=== PATIENT | female | born 1965 | race Caucasian/White ===

== ENCOUNTER 2018-12-24 17:31 | Inpatient (IN) | payer OTHER ==
[~2018-12-24] VITALS: Ht 7368 cm; Wt 2.4 kg
--- NOTE | ~2018-12-24 | WRIGHTHP ---
[place], [place] PATIENT HISTORY AND PHYSICAL EXAM NAME: [id number] UN[facility] #: [id number] ROOM: 311 DOCTOR: IDA SY MD BIRTHDATE: [birth year] DOS: 12/25/2018 INITIAL PSYCHIATRIC EVALUATION CHIEF COMPLAINT: "I need to talk to Dr. Brannon, Dr. Brannon is my doctor." HISTORY OF PRESENT ILLNESS: This is a 53-year-old white female who was sent here by [facility]. The patient had been there for approximately 10 days being treated for influenza A. While in the course of her treatment, they found her to be acutely manic and psychotic. The patient was very flighty and disjointed. She was crying easily and then would be agitated and aggressive the next moment. The patient was not sleeping well or attending to her ADLs. Because of the severity of her mood lability, it was felt that an inpatient stabilization was warranted. She was ultimately sent to [facility] for further stabilization. PAST MEDICAL HISTORY: Remarkable for diabetes, hypertension, hyperlipidemia, migraine headaches and a lengthy history of bipolar versus schizoaffective disorder. SOCIAL HISTORY: Socially, the patient is a cigarette smoker, the amount and duration is unknown. She does not use alcohol nor does she consume illicit drugs. STRENGTHS: Ambulatory, good verbal skills. WEAKNESSES: Cognitive impairment, long-term psychiatric illness, poor coping skills. MENTAL STATUS: The patient is alert and oriented to person, place, and very much approximate to time. Mood does seem to be very labile. She shifted very rapidly from irritable to anxious and depressed. The patient was flighty and disjointed in her thinking and would be very circumstantial in her presentation. She exhibited a great deal of motor agitation, but was redirectable in that way. The patient's memory does have some gaps, but she was relatively fully intact. DIAGNOSIS: Schizoaffective disorder. PLAN: I have loaded her with Depakote 2000 mg p.o. upon admission to the unit. I will follow up with Depakote 500 mg t.i.d. I have also ordered her Risperdal M-Tab 2 mg b.i.d. with the plan of possibly stabilizing her on Invega Sustenna to improve compliance. Routine screening examinations revealed her to have a low normal vitamin B12 level of 263. I will give her a B12 injection 1000 mcg IM monthly. Engage in individual and arcos milieu activities, returning to the least restrictive environment when stable. [place], [place] PATIENT HISTORY AND PHYSICAL EXAM NAME: YESY KAPOOR UNIT #: [id number] ROOM: [facility] DOCTOR: IDA YS MD BIRTHDATE: [birth year] IDA SY MD CM:HISPHYS:PATIENT HISTORY AND PHYSICAL EXAMINATION 3 0 IDA SY MD 12/25/18 0940 interface
--- NOTE | ~2018-12-24 | PR ---
[place], [place] PROGRESS NOTE NAME: YESY KAPOOR UNIT #: [id number] ROOM: 311 DOCTOR: IDA SY MD BIRTHDATE: [birth year] DOS: 12/26/2018 CHIEF COMPLAINT: "I feel sick in the stomach." SUMMARY OF THE VISIT: The patient was interviewed in the group therapy room. She had just finished eating breakfast and she was accompanied by the nursing students. She sat down and engaged in much more normal conversation. She was more goal directed in her thinking and less flighty and disjointed. She complained of feeling nauseated, but otherwise stated she slept well and had a good breakfast. MENTAL STATUS: She is alert and oriented to person, place, approximate to time. Mood does seem to be trending towards euthymia. Affect is more appropriate. There is no henny or hypomania noted this morning and no psychotic symptoms. Short term, intermediate and long-term memories for the most part are intact. PLAN: I will maintain her current psychotropic regimen, engage in individual and arcos milieu activity, returning to the least restrictive environment when psychiatrically stable. IDA SY MD CM:PNTRANS [phone] IDA SY MD 12/26/18 1535 interface
[2018-12-24] MEDS ORDERED: K-LOR 20MEQ20 ME1 PO (17:54)
[2018-12-24] MEDS ORDERED: ZOCOR20 MG PO (17:54)
[2018-12-24] MEDS ORDERED: PEPCID20 MG PO (17:54)
[2018-12-24] MEDS ORDERED: DITROPAN XL10 MG PO (17:55)
[2018-12-24] MEDS ORDERED: VENTOLIN 02.5 MG/3 M INH (17:56)
[2018-12-24] MEDS ORDERED: Diabeta,Micron2.5 MG PO (17:57)
[2018-12-24] MEDS ORDERED: GLUCOPHAGE1000 MG PO (17:57)
[2018-12-24] MEDS ORDERED: VITAMIN D31000 UNI1 PO (17:59)
[2018-12-24] MEDS ORDERED: ACTOS15 M1 PO (18:00)
[2018-12-24] MEDS ORDERED: NESINA PO (18:00)
[2018-12-24] MEDS ORDERED: COREG3.125 MG PO (18:01)
[2018-12-24] MEDS ORDERED: ZESTRIL5 MG PO (18:01)
[2018-12-24] MEDS ORDERED: NICODERM CQ1 EAC2 TD (18:02)
[2018-12-24] MEDS ORDERED: LANTUS SOL100 UNIT/1 SC (18:02)
[2018-12-24] MEDS ORDERED: HUMALOG 751 UNIT/0.0 SC ×2 (18:03)
[2018-12-24] MEDS ORDERED: LASIX20 MG PO (18:04)
[2018-12-24] MEDS ORDERED: GEODON80 MG IM (18:04)
[2018-12-24] MEDS ORDERED: MACROBID100 M1 PO (18:05)
--- NOTE | 2018-12-25 02:08 | NUR ---
YESY KAPOOR a 53 year old F admitted via stretcher from the ADMITTING as a voluntary admission. Arrived on unit at 0208. ALLERGIES: COMPAZINE,BROMPHEN,CEFACLOR,CIPROFLOXACIN,ERYTHOMYCIN,GUAIFENESIN,NIZATIDINE,PE NICILLIN,BACTRIM. Vital signs are: 98.2-85-18 137/68. The [facility] gave verbal consent for the following forms with stated understanding: Authorization For The Release of Medical Information, Clothing List, Consent to Voluntary Admission and Hospitalization, Consent and Release Forms/Receipt of Rights, Acknowledgement of Advance Directive Information, Behavioral Health Consent Form, and Informed Consent of Medications. Admitted under the services of Dr. YOSSI ESTRADAIDA. A search was conducted and hazardous articles were removed. Client was oriented to the unit. MADHU VALDOVINOS
--- NOTE | 2018-12-25 02:10 | NUR ---
DR MOORE UDATED ABOUT ADMISSION. PATIENT TO BE UNDER DR LOTT FOR MEDICAL MANAGEMENT
--- NOTE | 2018-12-25 02:14 | NUR ---
[facility] CALLED AND MESSAGE LEFT WITH UPDATE ABOUT NEW ADMISSION ON UNIT
[2018-12-25 02:23] VITALS: BP 137/68
[2018-12-25 02:32] VITALS: BP 137/68
--- NOTE | 2018-12-25 05:20 | NUR ---
Patient slept approx. 2 hours since admission. Q 15 minute safety checks continued and maintained.
[2018-12-25 06:53] LABS: BASO # 0.1 10*3/uL (0.0-0.1); BASO % 0.4 % (0.0-1.0); EOS # 0.1 10*3/uL (0.0-0.4); EOS % 1.2 % (1.0-4.0); HEMATOCRIT 45.9 % (37.0-47.0); HEMOGLOBIN 14.9 g/dl (12.0-16.0); LYMPH # 3.3 10*3/uL (1.3-4.4); MEAN CELL VOLUME 88.4 fl (81.0-99.0); MEAN CORPUSCULAR HGB 28.7 pg (27.0-31.0); MEAN CORPUSCULAR HGB CONC 32.5 g/dl (33.0-37.0); MONO % 8.4 % (3.0-9.0); NEUT # 6.8 10*3/uL (2.3-7.9); NEUT % 60.6 % (47.0-73.0); PLATELET COUNT AUTOMATED 353 10*3/uL (130-400); RED BLOOD COUNT 5.19 10*6/uL (4.10-5.10); RED CELL DISTRI WIDTH 13.7 % (0-14.5); WHITE BLOOD COUNT 11.3 10*3/uL (4.8-10.8)
[2018-12-25 07:29] LABS: ALBUMIN 3.1 gm/dl (3.1-4.5); BUN 21 mg/dl (7-24); CHLORIDE 105 mmol/L (98-107); CHOLESTEROL 106 mg/dL (<200); CREATININE 0.63 mg/dL (0.55-1.02); POTASSIUM 4.1 mmol/L (3.5-5.1); SGOT/AST 6 IU/L (3-35); SGPT/ALT 30 U/L (12-78); SODIUM 138 mmol/L (136-145); TRIGLYCERIDES 77 mg/dl (<150); VLDL CHOLESTEROL 15 mg/dL (6-40)
[2018-12-25 07:35] LABS: VITAMIN D, 25-HYDROXY 51.7 ng/mL (30-100)
[2018-12-25 07:41] LABS: ALKALINE PHOSPHATASE 65 U/L (45-117); HDL CHOLESTEROL 45 mg/dl (40-60); LDL CHOLESTEROL 46 mg/dL (9-159); TOTAL PROTEIN 6.4 gm/dL (6.4-8.2)
[2018-12-25 08:11] VITALS: BP 132/56
--- NOTE | 2018-12-25 08:15 | NUR ---
Treatment Plan meeting with Dr. Hinton RN, AT and Agency Service Representative. Plan for discharge next week. Will reach out to family today to discuss discharge Planning.
--- NOTE | 2018-12-25 08:17 | NUR ---
PT AWAKE, ALERT, HYPERVERBAL, TEARFUL, DIFFICULT TO REDIRECT. THROWING TISSUES ALL OVER QUIET ROOM. ATE 100% OF BREAKFAST INDEPENDENTLY. AND ON UNIT TO SEE PT AT THIS TIME, UPDATES PROVIDED.
[2018-12-25 09:11] LABS: BILIRUBIN NEGATIVE (NEGATIVE); BLOOD NEGATIVE (NEGATIVE); CLARITY CLEAR (CLEAR); COLOR YELLOW (YELLOW); GLUCOSE 1+ (NEGATIVE); KETONE 1+ (NEGATIVE); LEUKO ESTERASE TRACE (NEGATIVE); NITRITE NEGATIVE (NEGATIVE); PH 5.5 (5.0-9.0); SPECIFIC GRAVITY 1.015 (1.005-1.030); UROBILINOGEN 0.2 E.U./dl (0.2-1.0)
[2018-12-25 09:25] LABS: BACTERIA TRACE
--- NOTE | 2018-12-25 10:24 | NUR ---
CALL RECIEVED FROM PT'S DAUGHTER/BHUMIKA ROMAN, UPDATE PROVIDED. ALL QUESTIONS ANSWERED.
--- NOTE | 2018-12-25 11:41 | NUR ---
AM GROUP PT ATTENDED AND PARTICIPATED IN ALL GROUP ACTIVITIES. PT EXHIBITED NO AGITATION OR AGGRESSION DURING GROUP. PT MOVED QUICKLY FROM ONE TASK TO ANOTHER AND GOT UP OFTEN TO ASK TO USE THE BATHROOM.
--- NOTE | 2018-12-25 12:03 | NUR ---
PRIOR TO LUNCH BSG 66, PT GIVEN ORANGE JUICE AND ATE LUNCH. BSG REASSESSED AT THIS TIME PER NURSING MEASURE WITH RESULT 114.
--- NOTE | 2018-12-25 13:27 | NUR ---
P- MANIC BEHAVIOR, PRESSURED SPEECH WITH FLIGHT OF IDEAS, MOOD APPEARS DEPRESSED AND ANXIOUS, TEARFUL, APPEARS PARANOID AND SUSPICIOUS AT TIMES. PT REPORTS AUDITORY AND VISUAL HALLUCINATIONS. PT PREOCCUPIED WITH SEEING AND HER FAMILY DOCTOR. I- ORIENTATION, MOOD AND BEHAVIOR ASSESSED. ASSESSED PT FOR SI/HI, INTENT OR PLAN. ASSESSED PT FOR S/S HALLUCINATIONS, PARANOIA AND/OR DELUSIONS. MEDICATIONS ADMINISTERED PER PHYSICIAN'S ORDERS. STAFF ASSIST AND ENCOURAGEMENT PROVIDED FOR ADL CARE NEEDED. ENCOURAGED PT TO ATTEND AND PARTICIPATE IN [facility] MILIEU GROUPS AND ACTIVITIES. R- PT IS ALERT TO PERSON ONLY, APPEARS CONFUSED/DISORIENTED IN OTHER AREAS HOWEVER, ORIENTATION AND MEMORY RECALL ARE DIFFICULT TO ACCURATELY ASSESS PT'S ANSWERS TO QUESTIONS ARE LARGELY NONSENSICAL AND IRRELEVANT TO THE TOPIC BEING DISCUSSED. PT OFTEN ANSWERS QUESTIONS BY REPEATING HER DAUGTHERS NAME, HER BIRTHDATE AND ADDRESS. MOOD APPEARS DEPRESSED AND ANXIOUS, PT TEARFUL AT TIMES, APPEARS SUPSICIOUS/PARANOID OF STAFF. PT CONTINUES WITH FLIGHT OF IDEAS NOTED AND PRESSURED SPEECH. PT PACES HALLWAYS AT TIMES, IN AND OUT OF ROOMS, DOES NOT SIT STILL OR STAY IN ONE PLACE FOR ANY LENGTH OF TIME. DURING 1:1 WITH THIS RN PT REPORTS AUDITORY AND VISUAL HALLUCINATIONS, PT STATES SHE WAS SEEING "BLACK STRING AND SPIDERS" IN HER ROOM AND STATES "DON'T TELL MY SISTER, SHE WILL FREAK OUT". PT ALSO REPORTS HEARING VOICES TELLING HER TO "COME HERE". REALITY PRESENTATION AND EMOTIONAL SUPPORT PROVIDED. PT DENIES SI/HI, INTENT OR PLAN. PT IS AMBULATORY WITH STEADY GAIT, REQUIRES STAFF ASSIST X1 AND PROMPTING WITH SIMPLE STEP BY STEP INSTRUCTIONS FOR COMPLETION OF ADL CARE. ABLE TO FEED SELF. 2000ML FLUID RESTRICTION MAINTAINED. Q15 MIN SAFETY CHECKS MAINTAINED. ELOPEMENT PRECAUTIONS INITIATED AND MAINTAINED PT HAS STATED TO NURSING STUDENTS SHE WILL TRY TO GET OUT THE DOOR IF SHE CAN. HOWEVER, PT HAS NOT MADE ANY ELOPEMENT ATTEMPTS OF THIS POINT IN THE SHIFT. P- PLAN TO CONTINUE CURRENT TREATMENT, CONTINUE TO MONITOR MOOD AND BEHAVIORS. PROVIDE APPROPRIATE REORIENTATION, REDIRECTION AND 1:1 NEEDED. CONTINUE TO ENCOURAGE MEDICATION COMPLIANCE WELL GROUP ATTENDANCE AND PARTICIPATION.
--- NOTE | 2018-12-25 13:54 | NUR ---
psychosocial hx completed.
--- NOTE | 2018-12-25 15:09 | NUR ---
PM GROUP/WATERCOLORS PT ATTENDED AND PARTICIPATED IN ALL GROUP ACTIVITIES. PT EXHIBITED NO AGITATION OR AGGRESSION DURING GROUP. PT WAS TALKATIVE AND DID WATERCOLORS AND COLORING.
[2018-12-25 16:29] VITALS: BP 117/87
--- NOTE | 2018-12-25 18:46 | NUR ---
SHIFT CHART CHECK COMPLETED.
--- NOTE | 2018-12-25 21:10 | NUR ---
CONFUSED AND UNABLE TO PARTICIPATE IN 1:1. GIVE HER HOME ADDRESS TO ALL QUESTIONS ASWERED. WANDERING AROUND RAMIREZ AND DININGROOM. DIFFICULTY TO REDIRECT. WIDE EYED WHEN APPROACHED OR ASKED ANYTHING. EMOTIONAL SUPPORT PROVIDED. MEDICATED PER ORDERS. MONITOR Q 15 MINUTES FOR SAFETY.
--- NOTE | 2018-12-26 02:16 | NUR ---
SLEEPING INTERMITTENTLY. GOING FROM HER BED TO EMPTY BED. UNABLE TO REDIRECT HER TO STAY IN HER BED. WILL CONTINUE TO MONITOR 24 HR chart check completed.
--- NOTE | 2018-12-26 06:26 | NUR ---
SLEPT 5 BROKEN HOURS
--- NOTE | 2018-12-26 08:00 | NUR ---
bsg 277 at this time. pt c/o dizziness. pt encouraged to rest in room across from nurses' station.
--- NOTE | 2018-12-26 08:20 | NUR ---
PT SITTING IN GROUP ROOM ACROSS FROM NURSES' STATION WITH EYES CLOSED. PT REFUSES TO AWAKE FOR ASSESSMENT AT THIS TIME. OPENS EYES AND CLOSES THEM AGAIN WITH NO VERBAL INTERACTION. RESPONDS TO NAME ONLY.
[2018-12-26 08:28] VITALS: BP 102/68
--- NOTE | 2018-12-26 08:30 | NUR ---
bsg 205 at this time. attempted to arouse pt, pt not responding to verbal stimuli. pt will grunt with tactile stimuli. bp 114/56, spo2 86% at ra. 2L of 02 applied via nasal cannula. spo2 increased to 93% at this time. apical heart rate 68bpm. lungs clear anteriorly, some rhonchi noted posteriorly. upon repositioning of head, pt has harsh cough. continues to sit in group room across from nurses station at this time, pulse ox monitor intact to right index finger.
--- NOTE | 2018-12-26 08:40 | NUR ---
dr. peacock notified of change in pt condition, arousability, oxygen application, and medications. dr. peacock stated to hold all oral diabetic medications. stated to keep pt sitting across from nurses station. stated he will order a cxr at this time and will be up to see her later.
--- NOTE | 2018-12-26 08:45 | NUR ---
radiology on unit at this time to complete portable cxr.
--- NOTE | 2018-12-26 08:56 | NUR ---
VS RECHECKED AT THIS TIME. T97.8-75-18 BP 72/43 SPO2 91% AT 2L VIA NASAL CANNULA. BSG 154. [facility] RESPONSE CALLED.
--- NOTE | 2018-12-26 08:58 | NUR ---
[facility] RESPONSE TEAM ON UNIT AT THIS TIME. [facility] NURSE PLACED #22G IV CATHETER TO RFA, 0.9%NS BOLUS RUNNING WITHOUT DIFFICULTY. PT WILL NOT RESPOND TO VERBAL OR TACTILE STIMULI AT THIS TIME. FULL REPORT GIVEN TO DR. JUSTICE AND DR. DELCID.
--- NOTE | 2018-12-26 09:08 | NUR ---
DR. DELCID STATED TO SEND PT TO [facility] FOR MEDICAL MANAGEMENT, DX METABOLIC ENCEPHALOPATHY.
--- NOTE | 2018-12-26 09:11 | NUR ---
DR. [facility].
--- NOTE | 2018-12-26 09:12 | NUR ---
PT TRANSFERRED FROM CHAIR TO STRETCHER X4 ASSIST FOR TRANSFER TO [facility].
--- NOTE | 2018-12-26 09:15 | NUR ---
PT TRANSFERRED OFF UNIT AT THIS TIME VIA CART. ESCORTED BY RN, RESPIRATORY, AND RESIDENT PHYSICIAN. RESPIRATORY TO MANAGE OXYGEN THERAPY AT THIS TIME.
--- NOTE | 2018-12-26 09:25 | NUR ---
THIS NURSE RETURNED TO U AT THIS TIME FROM BEDSIDE REPORT AT [facility], NOTIFIED [facility] OF CHANGE IN PT CONDITION AND TRANSFER TO [facility].
--- NOTE | 2018-12-26 11:57 | NUR ---
Faxed admission and discharge clinical to [facility]. Awaiting response.
[2018-12-26] MEDS ORDERED: NOVOLOG 70/30 M10 ML SC (14:19)
[2018-12-26] MEDS ORDERED: ACTOS15 M1 PO (14:20)
[2018-12-26] MEDS ORDERED: TRADJENTA5 M1 PO (14:21)
[2018-12-26] MEDS ORDERED: CARVEDILOL3.125 MG PO (14:22)
[2018-12-26] MEDS ORDERED: TRAD5TAB1 PO (14:28)
[2018-12-26] MEDS ORDERED: RISPERDAL2 M1 PO (14:31)
== END 2018-12-26 09:15 | disposition short-term general hospital (02) | DRG 885 ==
LOC: 3N 17:31
PROVIDERS: ADMIT Psychiatry & Neurology Psychiatry
DX: F25.0 Schizoaffective disorder, bipolar type (principal); R63.1 Polydipsia; E78.5 Hyperlipidemia, unspecified; F17.210 Nicotine dependence, cigarettes, uncomplicated; F54 Psychological and behavioral factors associated with disorders or diseases classified elsewhere; I10 Essential (primary) hypertension; E11.65 Type 2 diabetes mellitus with hyperglycemia; Z88.0 Allergy status to penicillin; Z88.2 Allergy status to sulfonamides; Z88.1 Allergy status to other antibiotic agents; Z88.8 Allergy status to other drugs, medicaments and biological substances; Z82.49 Family history of ischemic heart disease and other diseases of the circulatory system; Z83.3 Family history of diabetes mellitus; Z79.84 Long term (current) use of oral hypoglycemic drugs; Z79.4 Long term (current) use of insulin; Z79.899 Other long term (current) drug therapy

== ENCOUNTER 2018-12-27 10:57 | Inpatient (IN) | payer OTHER ==
[~2018-12-27] VITALS: Ht 165.1 cm; Wt 94.3 kg
--- NOTE | ~2018-12-27 | PR ---
[place], [place] PROGRESS NOTE NAME: YESY KAPOOR UNIT #: [id number] ROOM: 311 DOCTOR: IDA SY MD BIRTHDATE: [birth year] DOS: 12/30/2018 INTERVAL NOTE CHIEF COMPLAINT: "I'm ready to go home. I think I'm doing better." SUMMARY OF THE VISIT: The patient was interviewed as she was doing crafts after eating breakfast already. She engaged readily in conversation, very fixated however on going home; however, she is redirectable. She is sleeping better, eating better and is no longer manic or hypomanic. She is tolerating the medication regimen well with no sedation or somnolence, extrapyramidal symptoms or tardive dyskinesia noted. MENTAL STATUS: She is alert and oriented with some time gaps. Mood does seem to be trending towards euthymia. Affect is more appropriate. There is no henny or hypomania. PLAN: I will maintain her current psychotropic regimen, engage in individual and arcos milieu activity, returning to the least restrictive environment when psychiatrically stable. IDA SY MD CM:PNTRANS [id number] IDA SY MD 12/30/18 2249 interface
--- NOTE | ~2018-12-27 | PR ---
[place], [place] PROGRESS NOTE NAME: YESY KAPOOR UNIT #: [id number] ROOM: 311 DOCTOR: IDA SY MD BIRTHDATE: [birth year] DOS: 12/29/2018 CHIEF COMPLAINT: "I really burned down there. I still think I have the flu." SUMMARY OF THE VISIT: The patient was interviewed as she was coloring in the dining area. She was brighter and more pleasant. She still tended to be somewhat circumstantial in her thinking, but redirected more easily. There is no agitation or aggression. She was fixated on burning in her private parts and it was unclear whether this is an old complaint or a new complaint, but I did mention that I would pass this on to the primary care physician. MENTAL STATUS: She is alert and oriented with some time gaps. Mood does seem to be solidly trending towards euthymia. Affect is more appropriate. Elly has shifted into hypomania. There are no psychotic symptoms and memory is intact with small gaps. PLAN: Her valproic acid level is low at 48. I will go ahead and increase her Depakote level then to 500 mg 3 times daily, trying to bring the level into the range of 60-80. We will notify the primary care physician regarding her physical complaints and defer to their expertise. IDA SY MD CM:PNTRANS [id number] IDA SY MD 12/30/18 0332 interface
--- NOTE | ~2018-12-27 | DS ---
[place], [place] DISCHARGE SUMMARY NAME: YESY KAPOOR UNIT #: [id number] ROOM: 311 DOCTOR: IDA SY MD BIRTHDATE: [birth year] DOS: 12/31/2018 CHIEF COMPLAINT: "I want Sophia, I want Dr. Brannon, I want to go home." HISTORY OF PRESENT ILLNESS: This is a 53-year-old white female readmitted from the medical floor. She was initially admitted to the [facility] at [facility] due to mixed henny and depression. While on the [facility] Unit, she developed ongoing respiratory issues that necessitated a brief medical stay to be medically stabilized. Subsequently, she continued to have symptoms and was transferred back to the U to further treat her henny. The patient was not sleeping consistently at night, still had pressured speech and was very delusional. SUMMARY OF HOSPITAL COURSE: The patient was admitted to the unit where her Risperdal was discontinued in lieu of Invega 6 mg in the morning. Because of a significant depressive component with poor sleep and appetite, Remeron 15 mg at bedtime was added. The patient was maintained on Depakote 500 mg t.i.d. to help augment the effectiveness of the antipsychotic and also further stabilize her mood. A valproic acid level obtained on 12/29/2018 was low normal at 48. The patient significantly improved with this combination of medications. Sleep and appetite normalized. No side effects were noted. The patient voiced a willingness and a readiness to return home. Aftercare was set up at [facility] and the patient was subsequently discharged on 12/31/2018. MENTAL STATUS AT DISCHARGE: The patient is alert and oriented to person, place, approximate to time. Mood is euthymic. Affect is appropriate. There is no henny, hypomania or psychosis. No suicidal, homicidal, or self-injurious behaviors noted. DIAGNOSIS AT DISCHARGE: Schizoaffective. PLAN: The patient is returning home to have followup with [facility]. All of her prescriptions have been e-scribed to [facility] in [place]. At the time of discharge, she was medically and psychiatrically stabilized. [place], [place] DISCHARGE SUMMARY NAME: YESY KAPOOR UNIT #: [id number] ROOM: [facility] DOCTOR: IDA SY MD BIRTHDATE: [birth year] IDA SY MD CM:OCTAVIANO 2 [id number] IDA SY MD 12/31/18 0948 interface
--- NOTE | ~2018-12-27 | WRIGHTHP ---
[place], [place] PATIENT HISTORY AND PHYSICAL EXAM NAME: YESY KAPOOR UNIT #: [id number] ROOM: 311 DOCTOR: IDA SY MD BIRTHDATE: [birth year] DOS: 12/28/2018 INITIAL PSYCHIATRIC EVALUATION CHIEF COMPLAINT: "I want Sophia, I want Dr. Brannon, I want to go home." HISTORY OF PRESENT ILLNESS: This is a 53-year-old white female readmitted from the medical floor. The patient had initially been admitted to the [facility] Care Unit at [place] due to a mix of henny and depression. The patient developed ongoing respiratory issues that necessitated a brief medical stay and once medically stable was transferred back to the U for further psychiatric evaluation and treatment. The patient initially on admission was very manic, was not sleeping at night, had pressured speech and was very delusional. This has now shifted into a hypomanic state as she is still not sleeping. She is still somewhat pressured, but redirectable and still very much disorganized and requiring a great deal of support and redirection. She is admitted now to rule out further organic factors and attempt to stabilize on medication, returning to the least restrictive environment when psychiatrically stable. PAST MEDICAL HISTORY: Remarkable for bipolar type 1, diabetes, hypertension, hyperlipidemia, migraines, psychogenic polydipsia and nicotine abuse. SOCIAL HISTORY: She is a cigarette smoker. She does not use illicit drugs or drink alcohol. ALLERGIES: She lists multiple drug allergies to PENICILLIN, BROMPHENIRAMINE, CEFACLOR, CIPRO, ERYTHROMYCIN, GUANFACINE, PHENYLPROPANOLAMINE, PROCHLOROPERAZINE, SULFA, CEFUROXIME and NIZATIDINE. STRENGTHS: Ambulatory, good verbal skills. WEAKNESSES: Cognitive impairment, severe mental health issues, poor coping skills. MENTAL STATUS: The patient is alert and oriented to person, place and very approximate to time. Mood does seem to be still labile. She shifts from being very depressed to being somewhat almost elated and hypomanic. Speech is nearly pressured, but she is interruptible. She remains delusional. Short-term memory has mild gaps, but for the most part is intact. DIAGNOSIS: Bipolar type 1, mixed. PLAN: I have already started her on Invega in lieu of the Risperdal. If needed, I will switch to Invega Sustenna. I will add Remeron 15 mg at bedtime to deal with the depressive symptoms and also aid sleep. I have started her on Depakote to stabilize mood, which does seem to be having a positive effect already. We will check a valproic acid level in the a.m. to ensure that it is therapeutic, engage in individual and arcos milieu activity, returning to the least restrictive environment when psychiatrically stable. [place], [place] PATIENT HISTORY AND PHYSICAL EXAM NAME: YESY KAPOOR UNIT #: [id number] ROOM: [facility] DOCTOR: IDA SY MD BIRTHDATE: [birth year] IDA SY MD CM:HISPHYS:PATIENT HISTORY AND PHYSICAL EXAMINATION [id number] IDA SY MD 01/22/19 1447 interface
[~2018-12-27 10:57] MED LIST: ACTOS15 M1 PO; CARVEDILOL3.125 MG PO; COREG3.125 MG PO; DITROPAN XL10 MG PO; Diabeta,Micron2.5 MG PO; GEODON80 MG IM; GLUCOPHAGE1000 MG PO; HUMALOG 751 UNIT/0.0 SC; K-LOR 20MEQ20 ME1 PO; LANTUS SOL100 UNIT/1 SC; LASIX20 MG PO; MACROBID100 M1 PO; NESINA PO; NICODERM CQ1 EAC2 TD; NOVOLOG 70/30 M10 ML SC; PEPCID20 MG PO; RISPERDAL2 M1 PO; TRAD5TAB1 PO; TRADJENTA5 M1 PO; VENTOLIN 02.5 MG/3 M INH; VITAMIN D31000 UNI1 PO; ZESTRIL5 MG PO; ZOCOR20 MG PO
--- NOTE | 2018-12-27 11:28 | NUR ---
YESY KAPOOR a 53 year old F admitted via wheel chair from the ADMITTING as a voluntary admission BY [facility]. Arrived on unit at 1128. ALLERGIES: PCN, BROMPHENIRAMINE, CEFACLOR, CIPRO, ERYTHROMYCIN BASE, GUAIFENESIN, NIZATIDINE, PHENYLPROPANOLAMINE, PROCHLORPERAZINE, SULFAMETHOXIZOLE, CEFUROXINE. Vital signs are: 98.5-96-18 128/81. The client signed the following forms with stated understanding: Authorization For The Release of Medical Information, Clothing List, Consent to Voluntary Admission and Hospitalization, Consent and Release Forms/Receipt of Rights, Acknowledgement of Advance Directive Information, Behavioral Health Consent Form, and Informed Consent of Medications. Admitted under the services of Dr. YOSSI ESTRADA,[facility]. A search was conducted and hazardous articles were removed. Client was oriented to the unit. LATASHA WYNN
[2018-12-27 11:40] VITALS: BP 128/81
[2018-12-27 11:46] VITALS: BP 128/81
--- NOTE | 2018-12-27 13:17 | NUR ---
SPOKE WITH DR. JUSTICE AT [phone] RE: PT ADMISSION AND MEDICAL MEDS NEEDING CONTINUED. PER DR. JUSTICE PLACE CONSULT UNDER DR. GAUTHIER
--- NOTE | 2018-12-27 13:58 | NUR ---
SPOKE WITH LATASHA BRAND, UPDATED ON PT ADMISSION AND VOLUNTARY BY POA STATUS.
--- NOTE | 2018-12-27 19:42 | NUR ---
P---ANGER--CONFUSION I--PROVIDE EMOTIONAL SUPPORT. TRY TO TEACH COPING SKILLS, BE PRESENT FOR ANY QUESTIONS OR NEEDS . REDIRECT R--STOP ASKING ME STUPID QUESTIONS. I WANT TO GO HOME. MY MOM AND DAD ARE AND GRANDPARENTS ON BOTH . MY DAUGHTER WON'T LET ME COME HOME. I NEED TO GO HOME TO SEE MY MOM. I NEED MY BROTHERS. I HAVE BEEN HERE TOO LONG P--CONTINUE TO TEACH COPING SKILLS. MEDICATE PER ORDERS. PROVIDE EMOTIONAL SUPPORT. MONITOR FOR CHANGES IN BEHAVIOR. MONITOR Q 15 MINUTES AND PRN FOR SAFETY.
[2018-12-27 19:49] VITALS: BP 132/69
--- NOTE | 2018-12-27 21:20 | NUR ---
NOTIFIED DR EUGENE THAT HOME MEDICATIONS NOT REORDERED YET,
--- NOTE | 2018-12-28 00:20 | NUR ---
DR TRIANA HERE TO SEE CLIENT. CLIENT SLEEPING AT THIS TIME. HE IS GOING TO WAKE HER
--- NOTE | 2018-12-28 00:27 | NUR ---
IRRITABLE AND WANDERING IN HALLWAY. WANTS TO GET UP FOR THE DAY. REDIRECTED TO ROOM AND TIME.
--- NOTE | 2018-12-28 01:27 | NUR ---
24 HR chart check completed.
--- NOTE | 2018-12-28 04:41 | NUR ---
SPOKE WITH DR MOORE CONCERNING INSTRUCTIONS FOR INSULIN INJECTIONS. OK TO PUT THEM ON MEDICATION REC. NO INSULIN SQ TO BE GIVEN IF BSG <300
--- NOTE | 2018-12-28 06:29 | NUR ---
AM BEDSIDE GLUCOSE 99
[2018-12-28 07:05] LABS: BASO # 0.1 10*3/uL (0.0-0.1); BASO % 0.7 % (0.0-1.0); EOS # 0.2 10*3/uL (0.0-0.4); EOS % 2.3 % (1.0-4.0); HEMOGLOBIN 14.2 g/dl (12.0-16.0); LYMPH # 2.8 10*3/uL (1.3-4.4); MEAN CELL VOLUME 90.4 fl (81.0-99.0); MEAN CORPUSCULAR HGB 28.5 pg (27.0-31.0); MEAN CORPUSCULAR HGB CONC 31.6 g/dl (33.0-37.0); MEAN PLATELET VOLUME 10.3 fl (9.6-12.3); MONO # 0.6 10*3/uL (0.1-1.0); MONO % 6.8 % (3.0-9.0); NEUT # 4.7 10*3/uL (2.3-7.9); NEUT % 55.8 % (47.0-73.0); PLATELET COUNT AUTOMATED 311 10*3/uL (130-400); RED BLOOD COUNT 4.98 10*6/uL (4.10-5.10); RED CELL DISTRI WIDTH 13.9 % (0-14.5); WHITE BLOOD COUNT 8.4 10*3/uL (4.8-10.8)
[2018-12-28 07:20] LABS: ALBUMIN 2.9 gm/dl (3.1-4.5); ALKALINE PHOSPHATASE 61 U/L (45-117); BUN 11 mg/dl (7-24); CHLORIDE 106 mmol/L (98-107); CHOLESTEROL 122 mg/dL (<200); CREATININE 0.55 mg/dL (0.55-1.02); HDL CHOLESTEROL 38 mg/dl (40-60); LDL CHOLESTEROL 62 mg/dL (9-159); POTASSIUM 4.4 mmol/L (3.5-5.1); SGOT/AST 12 IU/L (3-35); SGPT/ALT 26 U/L (12-78); SODIUM 140 mmol/L (136-145); TOTAL PROTEIN 6.2 gm/dL (6.4-8.2); TRIGLYCERIDES 110 mg/dl (<150); VLDL CHOLESTEROL 22 mg/dL (6-40)
[2018-12-28 08:00] VITALS: BP 141/70
--- NOTE | 2018-12-28 08:02 | NUR ---
PT SITTING IN DINING ROOM INTERACTING WITH PEERS. PT IS CURRENTLY FOCUSED ON HER DOCTORS AND GETTING OUT OF HERE BECAUSE SHE HAS "BEEN HERE TOO LONG". PT IS CONFUSED TO PLACE, STATES SHE IS IN "[facility]" PT REDIRECTED THAT SHE HAS ONLY BEEN HERE A FEW DAYS, AND THAT DR. SY WOULD BE IN SHORTLY TO SPEAK WITH HER ABOUT HER TREATMENT AND DISCHARGE PLANS. PT REORIENTED TO TIME AND PLACE. ASSESSED FOR SI/HI AND HALLUCINATIONS OR DELUSIONS. PT STATES THAT SHE "WOULD RATHER HAVE DR. CHOI OR DR. SANTAMARIA" BUT WILL SPEAK WITH DR. SY. PT ALSO STATES THAT SHE HAD NO IDEA SHE WAS IN [place]. PT CONTINUES TO BELIEVE SHE IS LEAVING TODAY, DESPITE REDIRECTION. PT STATES SHE "NEEDS PRAYED FOR". DENIES SI/HI. STATES SHE FEELS "SO MUCH BETTER". NO OVERT HALLUCINATIONS OR DELUSIONS NOTED. WILL CONTINUE TO ENCOURAGE MEDICATION COMPLIANCE, WILL ENCOURAGE PARTICIPATION IN GROUP THERAPY FOR SOCIALIZATION AND SUPPORT. WILL PROVIDE 1:1 FOR EMOTIONAL SUPPORT. WILL REDIRECT AND REORIENT APPROPRIATE.
[2018-12-28 08:17] LABS: VITAMIN D, 25-HYDROXY 36.6 ng/mL (30-100)
--- NOTE | 2018-12-28 09:45 | NUR ---
DR. GAUTHIER ON UNIT TO ASSESS PT AT THIS TIME. MADE AWARE OF POTASSIUM ORDER NOT HELD OR CONTINUED ON HOME MED REC. DR. GAUTHIER STATES "OK, I WILL LOOK AT IT".
--- NOTE | 2018-12-28 11:33 | NUR ---
AM GROUP/MUSIC/CRAFTS PT ATTENDED AND PARTICIPATED TO BEST OF ABILITY. PT PLEASANT AND ON TASK WITH ACTIVITIES. PT DID NOT BECOME AGITATED OR AGGRESSIVE AT THIS TIME. PT WILL CONTINUE TO ATTEND AND PARTICIPATE TO BEST OF ABILITY IN FUTURE GROUP SESSIONS.
--- NOTE | 2018-12-28 12:41 | NUR ---
client was on the unit, left for medical issues and returned here yesterday, we will use her psychosocial from last week. goals remain the same.
--- NOTE | 2018-12-28 13:17 | NUR ---
PT IN DINING ROOM, COLORING AND WATCHING MOVIE WITH PEERS. NO C/O OFFERED AT THIS TIME.
--- NOTE | 2018-12-28 15:43 | NUR ---
PM GROUP/LEISURE SKILLS PT ATTENDED AND PARTICIPATED DURING GROUP. PT DID BECOME TEARFUL DUE TO A PEER BECOMING UPSET WITH HER FOR COLORING OVER HER WORK. THIS STAFF EXPLAINED TO PT THAT SHE MUST ASK BEFOR ADDING TO SOMEONE ELSES ARTWORK. PT CALMED AND BACK ON TASK. PT DID NOT BECOME AGITATED OR AGGRESSIVE DURING THIS TIME. PT WILL CONTINUE TO ATTEND AND PARTICIPATE IN FUTURE GROUP SESSIONS.
--- NOTE | 2018-12-28 17:26 | NUR ---
Shift chart check completed.
--- NOTE | 2018-12-28 17:30 | NUR ---
PT CONTINUES TO SIT IN GROUP ROOM DOING ACTIVITIES AND LISTENING TO MUSIC WITH PEERS. NO ADVERSE MOODS OR BEHAVIORS THIS SHIFT.
[2018-12-28 20:22] VITALS: BP 136/80
--- NOTE | 2018-12-28 21:59 | NUR ---
Patient is alert to person with confusion. Patient has ST/LT memory deficits. No SI/HI noted at this time. No signs of any hallucinations/delusions noted. Patient is compliant with medications without any difficulty. Provided 1;1 to patient for emotional support. Redirected and reoriented when appropriate. Plan to provide 1:1 for emotional support. Continue to encourage medication compliance and continue to redirect and reorient when needed. Q 15 minute safety checks continued and maintained. See [facility] flowsheet for further documentation.
--- NOTE | 2018-12-29 00:09 | NUR ---
24 HR chart check completed.
--- NOTE | 2018-12-29 05:32 | NUR ---
Patient slept approx. 6 hours with a few periods of awakening throughout shift. Q 15 minute safety checks continued and maintained.
[2018-12-29 07:45] VITALS: BP 147/74
--- NOTE | 2018-12-29 09:48 | NUR ---
P: PT SPEAKING ON THE TELEPHONE WITH FAMILY MEMBER, RAISING HER VOICE AND CRYING "I WANT TO GO HOME, SUNDAR BEEN HERE TOO LONG, GET ME OUT OF HERE". PT ALERT TO PERSON AND YEAR ONLY, THINKS SHE IS AT [facility] AND HAS BEEN THERE A MONTH I: ATTEMPTED TO PROVIDE EMOTIONAL SUPPORT AND CALM PT, PT CONTINUES WITH BEHAVIORS, THIS NURSE ADVISED PT THAT SHE CANNOT USE THE PHONE IF IT IS GOING TO UPSET HER IN THIS MANOR, PROVIDED EMOTIONAL SUPPORT AND 1:1 FOR PT TO VOICE FEELING, RE-ORIENTED AND PRESENTED REALITY, PROVIDED LOW STIMUALTION ENVIRONEMNT FOR PT TO CALM R: PT CONTINUES TO BECOME TEARFUL AFTER PHONE CALL ENDED, STATING "SUNDAR BEEN HERE A MONTH, LET ME GO" P: CONTINUE TO PROVIDE EMOTIONAL SUPPORT AND 1:1 FOR PT TO VOICE FEELINGS, ENCOURAGE MED COMPLIANCE, MONITOR PT BEHAVIORS ON Q15 MIN SAFETY CHECKS PT DENIES ANY SUICIDAL THOUGHTS. PT AMBUALTORY THROUGHOUT UNIT, GAIT STEADY. PT CONTINENT OF BOWEL AND BLADDER. PT SHOWERED THIS SHIFT.
--- NOTE | 2018-12-29 10:25 | NUR ---
ON UNIT TO ASSESS PT, UPDATE PROVIDED.
--- NOTE | 2018-12-29 16:12 | NUR ---
PM GROUP/BINGO/LEISURE SKILLS PT ATTENDED AND PARTICIPATED DURING GROUP. PT KEEPS STATING "I'VE BEEN HERE FOR A MONTH I DONT EVEN KNOW WHAT DAY I GOT HERE". PT DID NOT BECOME AGITATED AT THIS TIME BUT DID TALK MORE THAN MOST PEERS EVEN WHEN THIS STAFF GAVE PT THE QUE TO QUIET DOWN TO RELAX. PT QUIETED A LITTLE BUT DID HAVE TROUBLE NOT TALKING. PT DID NOT BECOME AGGRESSIVE AT THIS TIME. PT WILL CONTINUE TO ATTEND AND PARTICIPATE IN FUTURE GROUP ACTIVITIES.
[2018-12-29 20:25] VITALS: BP 125/59
--- NOTE | 2018-12-29 22:08 | NUR ---
Patient alert to person with confusion noted. Patient has ST/LT memory deficits noted. No SI/HI noted. No hallucinations/delusions noted at this time. Patient is compliant with medications without difficulty. Provided 1:1 with patient for emotional supprot. Redirected and reoriented when appropriate and needed. Plan to continue medication compliance and continue to redirect and reorient when needed, Q 15 minut safety checks continued and maintained. See [facility] flowsheet for further documentation.
--- NOTE | 2018-12-30 00:20 | NUR ---
24 HR chart check completed.
--- NOTE | 2018-12-30 05:30 | NUR ---
Patient slept approx. 6 hours throughout shift. Q 15 minute safety checks continued and maintained.
[2018-12-30 07:12] VITALS: BP 130/60
[2018-12-30 07:27] LABS: BUN 11 mg/dl (7-24); CHLORIDE 106 mmol/L (98-107); CREATININE 0.55 mg/dL (0.55-1.02); POTASSIUM 4.5 mmol/L (3.5-5.1); SODIUM 139 mmol/L (136-145)
--- NOTE | 2018-12-30 08:15 | NUR ---
Treatment Plan meeting with Dr. Hinton, RN, AT and [facility]. Plan for discharge Sunday. Pt. to return home to family.
--- NOTE | 2018-12-30 08:20 | NUR ---
DR. LOTT ON UNIT TO ASSESS.
--- NOTE | 2018-12-30 11:31 | NUR ---
AM GROUP/LEISURE PT ATTENDED AND PARTICIPATED DURING GROUP. PT TALKATIVE WITH STAFF AND PEERS ENTIRE GROUP. PT DID NOT BECOME AGITATED OR AGGRESSIVE AT THIS TIME. PT WILL CONTINUE TO ATTEND AND PARTICIPATE IN FUTURE GROUP SESSIONS.
--- NOTE | 2018-12-30 12:00 | NUR ---
Spoke with Patient Daughter Margarita Berry via telephone. Advised of plans to discharge patient 12/30/2018 with return home. Daughter states that patient Sister Elena will be the person to transport patient with car pick up driver time 12:30 Sunday. Family has requested that patient follow up with other agency and do not want patient to return to [facility] or Dr. Lamas. Follow up appointments have been scheduled with Sharath mckeon for Psychiatric Follow up and Dr. Monk for Medical Follow Up. Pt. pharmacy information updated in computer by RN.
--- NOTE | 2018-12-30 12:20 | NUR ---
Faxed admission clinical to [facility]. Awaiting response.
--- NOTE | 2018-12-30 13:23 | NUR ---
NO ADVERSE MOODS OR BEHAVIORS NOTED. PT ALERT TO PERSON AND TIME. PT MED COMPLIANT WITHOUT DIFFICULTY. PT CALM, MOOD IS STABLE. PT INTERACTIVE WITH STAFF AND PEERS, PARTICICAPTES IN GROUPS/ACTIVITIES. NO HALLUCINATIONS OR DELUSIONS NOTED. PT DENIES ANY SUICIDAL THOUGHTS OR BEHAVIORS. PT AMBULATORY THROGUHOUT UNIT, GAIT STEADY. PT CONTINENT OF BOWEL AND BLADDER. PLAN IS TO MONITOR PT BEHAVIORS ON Q15 MIN SAFETY CHECKS, ENCOURAGE MED COMPLIANCE, PROVIDE EMOTIONAL SUPPORT AND 1:1 FOR PT TO VOICE FEELINGS, MONITOR PT BEHAVIORS ON Q15 MIN SAEFTY CHECKS.
--- NOTE | 2018-12-30 15:44 | NUR ---
PM GROUP/MUSIC/CRAFTS PT ATTENDED AND PARTICIPATED. PT BECAME TEARFUL AT TIMES WHEN DISCUSSING FAMILY DUE TO WANTING TO GO HOME. PT DID NOT BECOME AGGRESSIVE OR AGITATED AT THIS TIME. PT WILL CONTINUE TO ATTEND AND PARTICIPATE IN FUTURE GROUP SESSIONS.
[2018-12-30 20:00] VITALS: BP 129/60
--- NOTE | 2018-12-30 20:30 | NUR ---
P--CONFUSED AND TEARY I--TRIED TO BOOST EMOTIONAL SUPPORT, REINFORCED THAT SHE HAS VISITORS THAT CARE AND VISIT. EXPLAINED SHE IS ON A DIABETIC DIET AND FLUID RESTRICTION FOR HER HEALTH. OFFERED EMOTIONAL SUPPORT, REMINDED HER OF CARD FROM [employer] R--YOU DON'T UNDERSTAND, CLIENT CRYING, NO ONE LOVES ME OR VISITS ME. THEY DON'T CARE. YOU GUYS ARE KILLING ME BY NOT LETTING ME HAVE MORE FOOD AND DRINKS. I AM JUST GOING TO BE PUT RIGHT BACK HERE BECAUSE I WILL BE SICK P--CONTINUE TO PRESENT REALITY AND EMOTIONAL SUPPORT. MONITOR Q 15 MINS AND PRN FOR CHANGES IN MOOD AND BEHAVIOR.
--- NOTE | 2018-12-30 21:56 | NUR ---
REFUSES TO BRUSH GUMS. RINSED MOUTH OUT
--- NOTE | 2018-12-31 04:01 | NUR ---
24 HR chart check completed.
--- NOTE | 2018-12-31 05:03 | NUR ---
SLEPT WELL PAST 2200PM. MOVED SELF IN BED
[2018-12-31 07:51] VITALS: BP 144/69
--- NOTE | 2018-12-31 08:15 | NUR ---
Treatment Plan meeting with Dr. Jamaal RN and [facility]. Plan for discharge Today. Pt. to return home with family who assists with ADL's and Medication management.
--- NOTE | 2018-12-31 08:16 | NUR ---
-PT IN DINING AREA WITH PEERS. SPEECH TANGENTIAL, FLIGHT OF IDEAS PRESENT. PT IS DISORGANIZED, REFERRING BACK TO PATIENT'S PARENTS AND BECOMING TEARFUL, DESPITE CONVERSATION BEING UNRELATED TO TOPIC OF PARENT'S . -ASSESSED PT FOR MOOD AND AFFECT. ASSESED FOR SI/HI AND FEELINGS OF DEPRESSION. ASSESSED FOR HALLUCINATIONS AND DELUSIONS. ASSESSED FOR APPETITE AND QUALITY OF SLEEP. -PT IN A PLEASANT MOOD. STATES SHE FEELS "GOOD", AFFECT IS APPROPRIATE. PT IS DENYING SI/HI. STATES "i WOULD NEVER HURT ANYONE OR PUT MY HANDS ON THEM OR ME". PT DENIES FEELINGS OF SADNESS OR DEPRESSED MOOD. PT STATES SHE DOES HAVE VISUAL HALLUCINATIONS, STATING "I SEE BUGS WHEN MY SUGAR DROPS BUT I CAN KILL THEM. I CAN'T KILL SNAKES. I CAN'T KILL GROUNDHOGS EITHER. WE USED TO SKIN THEM AND EAT THEM AND RABBITS." PT ENCOURAGED TO SLOW SPEECH, REDIRECTED FROM FLIGHT OF IDEAS. PT STATES HER APPETITE IS "TOO GOOD" AND SHE IS "SLEEPING REAL GOOD" ALSO. -WILL CONTINUE CURRENT TREATMENT PLAN. WILL CONTINUE TO REDIRECT WHEN APPROPRIATE. PROVIDED 1:1 FOR EMOTIONAL SUPPORT. CONTINUE Q 15 MIN MONITORING. PT IS TO BE DISCHARGED THIS AFTERNOON, PER DOCTOR YOSSI.
[2018-12-31] MEDS ORDERED: PALIPERIDONE ER6 MG PO (09:08)
[2018-12-31] MEDS ORDERED: DIVALPROEX SOD500 MG PO (09:08)
[2018-12-31] MEDS ORDERED: MIRTAZAPINE15 M2 PO (09:08)
[2018-12-31] MEDS ORDERED: Diabeta,Micron2.5 MG PO (11:59)
[2018-12-31] MEDS ORDERED: CARVEDILOL3.125 MG PO (11:59)
[2018-12-31] MEDS ORDERED: VENTOLIN 02.5 MG/3 M INH (11:59)
[2018-12-31] MEDS ORDERED: ZOCOR20 MG PO (11:59)
[2018-12-31] MEDS ORDERED: TRAD5TAB1 PO (11:59)
[2018-12-31] MEDS ORDERED: PEPCID20 MG PO (11:59)
[2018-12-31] MEDS ORDERED: GLUCOPHAGE1000 MG PO (11:59)
[2018-12-31] MEDS ORDERED: NICODERM CQ1 EAC2 TD (11:59)
[2018-12-31] MEDS ORDERED: ACTOS15 M1 PO (11:59)
[2018-12-31] MEDS ORDERED: NESINA PO (11:59)
[2018-12-31] MEDS ORDERED: LASIX20 MG PO (11:59)
[2018-12-31] MEDS ORDERED: ZESTRIL5 MG PO (11:59)
[2018-12-31] MEDS ORDERED: DITROPAN XL10 MG PO (11:59)
[2018-12-31] MEDS ORDERED: K-LOR 20MEQ20 ME1 PO (11:59)
--- NOTE | 2018-12-31 12:49 | NUR ---
ALL DISCHARGE PAPERWORK REVIEWED WITH PT AND SISTER/LEGAL BILLER, FEBRUARY. VERBALIZED UNDERSTANDING OF MEDICATIONS AND INSTRUCTIONS AT THIS TIME. PT DISCHARGED OFF UNIT VIA WHEELCHAIR WITH ALL BELONGINGS AND PAPERWORK, MILIEU ESCORTED.
--- NOTE | 2019-01-01 11:50 | NUR ---
Faxed discharge clinical to [facility]. ALEXANDER adriana. Ref # [id number]
== END 2018-12-31 12:52 | disposition home or self-care (01) | DRG 885 ==
LOC: 3N 10:57
PROVIDERS: Internal Medicine; ADMIT Psychiatry & Neurology Psychiatry
DX: F31.60 Bipolar disorder, current episode mixed, unspecified (principal); F25.9 Schizoaffective disorder, unspecified; G43.909 Migraine, unspecified, not intractable, without status migrainosus; F17.210 Nicotine dependence, cigarettes, uncomplicated; I10 Essential (primary) hypertension; E11.65 Type 2 diabetes mellitus with hyperglycemia; E78.5 Hyperlipidemia, unspecified; Z88.1 Allergy status to other antibiotic agents; Z88.0 Allergy status to penicillin; Z88.2 Allergy status to sulfonamides; Z88.8 Allergy status to other drugs, medicaments and biological substances; Z79.84 Long term (current) use of oral hypoglycemic drugs